=== PATIENT | male | born 1940 | race Caucasian/White ===

== ENCOUNTER → 2017-06-29 | Day surgery (SDC) | payer OTHER ==
[~2017-06-29] MED LIST: GENTAMICIN SULFATE 80 MG/2 ML VIAL ONE; LACTATED RINGER'S 1000 ML INJ 1,000 ML ONE; MIDAZOLAM HCL 2 MG/2 ML VIAL ONE; ONDANSETRON HCL 4 MG/2 ML VIAL IV PUSH ONE; PROPOFOL 200 MG/20 ML AMP IV ONE; SODIUM CHLORIDE 0.9% 100 ML ADDBAG IV ONE
--- NOTE | 2017-06-29 16:13 | TN ---
cc: KAY GONZALEZ M.D. 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 POSTOPERATIVE DIAGNOSES 1. 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 2. Foreign body (inactive brachytherapy seed). PROCEDURE Cystourethroscopy with removal of bladder neck calculi and foreign body (CPT code 84295). INDICATION Mr. Hodge is a 77-year-old gentleman who previously underwent combination radiotherapy with external beam and prostate seeds in 2001. He has a history of having a bladder neck calculus and underwent removal of this by myself in 2010. He recently was being evaluated for some gross painless hematuria and was found to have some recurrence of bladder neck calculi and presents now for cystoscopic removal. Findings are normal anterior urethra. 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 The bladder neck is somewhat narrowed. Circumferentially there are four to five small stones located imbedded in the bladder neck with some spongiofibrosis. Additionally there was a radioactive seed that was also dislodged presumably from the bladder neck. The bladder itself shows ureteral orifice normal size, shape and position, effluxing clear urine bilaterally. There are no tumors, abnormal mucosa, calcification. I find there is mild trabeculation and telangiectasia and radiation changes within the bladder itself. No linda tumors. PROCEDURE IN DETAIL The procedure as well as risks and benefits were explained to the patient. Informed consent was obtained. The patient was taken to the major operative theater where he was placed in supine position. The patient was identified as well as the operative site. [place] time-out was performed in standard fashion. At this time a 22.5 [place] cystoscope with a 30 degree lens was inserted into the urethra. Was able to enter into the bladder with some minimal resistance presumably from the stones. Once in the bladder the bladder was systematically surveyed with the above findings. At this time using rigid biopsy forceps the four or five stones that were located essentially circumferentially around the bladder neck were individually plucked, pulled out and then as part of that process some stone debris was noticed in the bladder along with a brachytherapy seed from his brachytherapy which was done in 2001. That was also removed at this time using a grasping forceps. At this time after evacuating any debris and no other foreign bodies identified, attention was directed to the bladder neck. There appeared to be minimal bleeding presumably due to the radiation effects and the lack of vascularity. There was some spongiofibrosis and since the bladder neck essentially had been dilated by the placing the cystoscope in and out, decision was made not to perform any additional treatment of the bladder neck. At this time the bladder was then decompressed and the cystoscope removed. The patient tolerated the procedure well, emerged from anesthetic without difficulty and transferred to the recovery in stable condition to be discharged home when criteria is met. There were no obvious complications. MD ELIZABETH De Jesus/CYNDY /3:26 PM /3:48 PM MTDD
== END | disposition home or self-care (01) ==
LOC: ESDC 12:34
PROVIDERS: ATTEND Urology
DX: N21.0 Calculus in bladder (principal)
CPT/HCPCS: 00910; 52310; J1580; J2250; J2405; J3010; J7120